=== PATIENT | male | born 1985 | race Two or more races ===

== ENCOUNTER 2019-10-11 10:03 | Emergency (ER) | payer SELFPAY ==
[2019-10-11 10:04] VITALS: BP 116/58; PULSE 62; TEMP 98.1; BMI 25.8
[2019-10-11] MEDS ORDERED: TETRACAINE 0.5% OPHTH SOLN 2 ML BOTTLE ONE (10:33)
[2019-10-11] MEDS ORDERED: FLUORESCEIN NA 1 EA STRIP ONE (10:33)
--- NOTE | 2019-10-11 11:01 | PDOC ---
History of Present Illness - General Chief Complaint: Eye Problem Stated Complaint: EYE PAIN Time Seen by Provider: 10/11/19 10:17 History Source: Patient Exam Limitations: No Limitations Past History - Travel Traveled outside of the country in the last 30 days: No Close contact w/someone who was outside of country & ill: No - Past Medical History Allergies/Adverse Reactions: Allergies Allergy/AdvReac Type Severity Reaction Status Date / Time No Known Allergies Allergy Verified 10/11/19 10:05 Home Medications: Ambulatory Orders Erythromycin 0.5% Eye Ointment [Erythromycin 0.5% Eye Ointment -] 1 applic OU TID #1 tube 10/11/19 - Psycho Social/Smoking Cessation Hx Smoking History: Never smoked Hx Alcohol Use: Yes (occasional) Drug/Substance Use Hx: No Substance Use Type: None Review of Systems - Review of Systems Able to Perform ROS?: Yes Comments:: 10/11/19 11:19 CONSTITUTIONAL: Absent: fever, chills, diaphoresis, generalized weakness, malaise, loss of appetite HEENT: Present: eye pain b/l Absent: rhinorrhea, nasal congestion, throat pain, throat swelling, difficulty swallowing, mouth swelling, ear pain, visual Changes CARDIOVASCULAR: Absent: chest pain, loss of consciousness, palpitations, irregular heart rate, peripheral edema RESPIRATORY: Absent: cough, shortness of breath, dyspnea with exertion, orthopnea, wheezing, stridor, hemoptysis GASTROINTESTINAL: Absent: abdominal pain, abdominal distension, nausea, vomiting, diarrhea, constipation, melena, hematochezia GENITOURINARY: Absent: dysuria, frequency, urgency, hesitancy, hematuria, flank pain, genital pain MUSCULOSKELETAL: Absent: myalgia, arthralgia, joint swelling SKIN: Absent: rash, itching, pallor NEUROLOGIC: Absent: headache, focal weakness or paresthesias, dizziness, unsteady gait, seizure, mental status changes, bladder or bowel incontinence PSYCHIATRIC: Absent: anxiety, depression, suicidal or homicidal ideation, hallucinations. Is the patient limited Occitan proficient: No *Physical Exam - Vital Signs Last Vital Signs Temp Pulse Resp BP Pulse Ox 98.1 F 62 14 116/58 L 99 10/11/19 10:03 10/11/19 10:03 10/11/19 10:03 10/11/19 10:03 10/11/19 10:03 - Physical Exam 10/11/19 11:20 GENERAL: The patient is awake, alert, and fully oriented, in no acute distress. HEAD: Normal with no signs of trauma. EYES: Pupils equal, round and reactive to light, extraocular movements intact, sclera anicteric, conjunctiva are pink bilaterally. Fluorescein stain shows no uptake of dye. HEENT: No nasal congestion or rhinorrhea. No sinus Tenderness. Mucous membranes are moist. No tonsillar erythema, exudate or edema. Uvula is midline. No TM bulging , dullness or erythema EXTREMITIES: Normal range of motion, no edema. NEUROLOGICAL: Normal speech, normal gait. PSYCH: Normal mood, normal affect. SKIN: Warm, Dry, normal turgor, no rashes or lesions noted. Medical Decision Making - Medical Decision Making 10/11/19 11:20 The patient is a 34-year-old male with no past medical history who presents the ER today for bilateral eye pain. He states that he works in [place] and there was a lot of dust yesterday. He notes that his eyes are very itchy and has been watering. Denies fevers, chills, visual changes, double vision. A/P: Conjunctivitis On exam conjunctiva are red bilaterally. Fluorescein stain shows no uptake. Likely a viral versus bacterial conjunctivitis We will treat with drops Discharge home I discussed the physical exam findings, ancillary test results and final diagnoses with the patient. I answered all of the patient's questions. The patient was satisfied with the care received and felt comfortable with the discharge plan and treatment plan. The Patient agrees to follow up with the primary care physician/specialist within 24-72 hours. Return precautions were given. Discharge - Discharge Information Problems reviewed: Yes Clinical Impression/Diagnosis: Conjunctivitis Qualifiers: Conjunctivitis type: acute Acute conjunctivitis type: bacterial Laterality: bilateral Qualified Code(s): H10.33 - Unspecified acute conjunctivitis, bilateral Condition: Stable Disposition: HOME - Admission No - Follow up/Referral Referrals: Juan Pablo Cummins MD [Staff Physician] - - Patient Discharge Instructions Patient Printed Discharge Instructions: DI for Conjunctivitis Additional Instructions: You have conjunctivitis. This is an eye infection. Please use erythromycin ointment twice a day to the affected eye for one week. Please wash her hands frequently Do not wear contact lenses until your infection clears Follow up with ophthalmology if her symptoms do not improve within a week. Return to the ER for visual changes, blurry vision, or any new or worsening symptoms. Tienes conjuntivitis. [place] es meagan infeccin ocular. Por favor, use un sunshine mento de eritromicina dos veces al da en el dimitris afectado jose a meagan semana. Por favor, lvese las idris con frecuencia No use lentes de contacto hasta que la infeccin se aclare Seguimiento con oftalmologa si yazan sntomas no mejoran dentro de meagan semana. Regrese a urgencias para cambios visuales, visin borrosa o cualquier sntoma nuevo o que empeore. Print Language: FINNISH - Post Discharge Activity Work/Back to School Note: Back to Work
== END 2019-10-11 11:26 | disposition home or self-care (01) ==
LOC: JERFT 10:03
DX: H10.33 Unspecified acute conjunctivitis, bilateral (principal)
CPT/HCPCS: 99281-25